=== PATIENT | female | born 2000 | race Caucasian/White ===

== ENCOUNTER 2018-04-01 05:50 | Emergency (ER) | payer SELFPAY ==
--- NOTE | 2018-04-01 06:48 | EDM.PDOC ---
ED HPI GENERAL MEDICAL PROBLEM - General Chief Complaint: CAR CONDITIONER Problem Stated Complaint: FEMALE PROBLEMS Time Seen by Provider: 04/01/18 05:52 Source of Information: Reports: Patient - History of Present Illness INITIAL COMMENTS - FREE TEXT/NARRATIVE: HISTORY AND PHYSICAL: History of present illness: 17-year-old G2 A1 25 week 5 day female presenting to emergency department with chief complaint of left vulvar pain and swelling. Patient states that she is from [place] and her CAR CONDITIONER had noticed a small area of swelling on her left vulvar area. At that time it was small and movable and her CAR CONDITIONER did not know how long it been there so decided to wait before doing anything. She had been instructed if it becomes hard and swollen and painful she may need to have a procedure performed. 2-3 days ago the area became much more firm and painful. Is difficult to sit, stand, or walk. States that sexual intercourse does not hurt. She has no history of STDs and is in a monogamous relationship. She denies any vaginal discharge or spotting or bleeding. Normal baby movements. Denies any associated fever, chills, nausea, vomiting, abdominal pain, diarrhea, or other signs of systemic infection. Review of systems: As per history of present illness and below otherwise all systems reviewed and negative. Past medical history: As per history of present illness and as reviewed below otherwise noncontributory. Surgical history: As per history of present illness and as reviewed below otherwise noncontributory. Social history: No reported history of drug or alcohol abuse. Family history: As per history of present illness and as reviewed below otherwise noncontributory. Physical exam: HEENT: Atraumatic, normocephalic, pupils reactive, negative for conjunctival pallor or scleral icterus, mucous membranes moist, throat clear, neck supple, nontender, trachea midline. Lungs: Clear to auscultation, breath sounds equal bilaterally, chest nontender. Heart: S1S2, regular, negative for clicks, rubs, or JVD. Abdomen: Soft, nondistended, nontender. Negative for masses or hepatosplenomegaly. Negative for costovertebral tenderness. Pelvis: Stable nontender. Genitourinary: There is significant swelling to the left labia major extending to the introitus and above. Rectal: Deferred. Extremities: Atraumatic, negative for cords or calf pain. Neurovascular unremarkable. Neuro: Awake, alert, oriented. Cranial nerves II through XII unremarkable. Cerebellum unremarkable. Motor and sensory unremarkable throughout. Exam nonfocal. Diagnostics: [] Therapeutics: 5 mL's lidocaine, Wrd catheter Impression: Bartholin's abscess Plan: Patient had significant swelling extending from the introitus to the labia major. There is mild erythema but extremely tender to palpation. Most consistent with a Bartholin's duct abscess. Using 5% lidocaine area was anesthetized with good analgesia. Under normal sterile technique a 11 blade was used to make a small puncture in the left Bartholin's gland area. A copious amount of purulent material was released approximately 10 mL's. A small Word catheter was then placed and bulb was inflated with approximately 2 mL of normal saline. Patient tolerated procedure well and there were no complications. Patient was scheduled to follow[facility] with [facility]. She was instructed to return months department if she had any new or worsening symptoms. vaginal pain Pain Score (Numeric/FACES): 10 - Related Data Allergies Allergy/AdvReac Type Severity Reaction Status Date / Time No Known Allergies Allergy Verified 04/01/18 06:34 Home Meds: Home Meds PNV95/Ferrous Fumarate/FA [ Tablet] 1 each PO DAILY 04/01/18 [History] Past Medical History - Past Health History Medical/Surgical History: Denies Medical/Surgical History CAR CONDITIONER History: Reports: Spontaneous Psychiatric History: Reports: Anxiety, Depression, Suicide Attempt Other Psychiatric History: pt states she was on anti-anxiety medication but stopped when she got Social & Family History - Family History Family Medical History: Noncontributory - Tobacco Use Smoking Status *Q: Never Smoker Second Hand Smoke Exposure: Yes - Caffeine Use Caffeine Use: Reports: Coffee, Soda - Recreational Drug Use Recreational Drug Use: No ED ROS GENERAL - Review of Systems Review Of Systems: ROS reveals no pertinent complaints other than HPI. ED EXAM, GENERAL - Physical Exam Exam: See Below Course - Vital Signs Last Recorded V/S: Last Vital Signs Temp 97.1 F 04/01/18 06:27 Pulse 118 H 04/01/18 06:27 Resp 18 04/01/18 06:27 BP 151/89 H 04/01/18 06:27 Pulse Ox 99 04/01/18 06:27 - Orders/Labs/Meds Meds: Medications Discontinued Medications Generic Name Dose Route Start Last Admin Trade Name Danielle PRN Reason Stop Dose Admin Lidocaine HCl Confirm 04/01/18 07:00 Xylocaine-Mpf 1% Administered 04/01/18 07:01 Dose 10 mls @ as directed .ROUTE .STK-MED ONE Lidocaine HCl 10 ml 04/01/18 06:52 Xylocaine 1% INJECT 04/01/18 06:53 ONETIME ONE Departure - Departure Time of Disposition: 07:47 Disposition: Home, Self-Care 01 Condition: Good Clinical Impression: Bartholin's gland abscess - Discharge Information Referrals: PCP,None [Primary Care Provider] - Forms: ED Department Discharge Additional Instructions: My general discharge The following information is given to patients seen in the emergency department who are being discharged to home. This information is to outline your options for follow-up care. We provide all patients seen in our emergency department with a follow-up referral. The need for follow-up, as well as the timing and circumstances, are variable depending upon the specifics of your emergency department visit. If you don't have a primary care physician on staff, we will provide you with a referral. We always advise you to contact your personal physician following an emergency department visit to inform them of the circumstance of the visit and for follow-up with them and/or the need for any referrals to a consulting specialist. The emergency department will also refer you to a specialist when appropriate. This referral assures that you have the opportunity for follow-up care with a specialist. All of these measure are taken in an effort to provide you with optimal care, which includes your follow-up. Under all circumstances we always encourage you to contact your private physician who remains a resource for coordinating your care. When calling for follow-up care, please make the office aware that this follow-up is from your recent emergency room visit. If for any reason you are refused follow-up, please contact the [facility] Emergency Department at and asked to speak to the emergency department charge nurse. [facility] [address] [place] [phone] Please follow-up with the CAR CONDITIONER sent number above as soon as possible. Be sure to tell them that he receive an emergency department and a Word catheter was placed for a Bartholin gland abscess. Use ice at site improve pain and inflammation. Return to emergency department if any new or worsening symptoms.
[2018-04-01] MEDS ORDERED: Lidocaine 1% 10 ML MDV INJECT ONE (06:52)
[2018-04-01] MEDS ORDERED: Lidocaine 1% 20 ML MDV INJECT ONE (06:56)
== END 2018-04-01 08:40 | disposition home or self-care (01) ==
LOC: MW.ED 05:50
DX: O99.89 Other specified diseases and conditions complicating pregnancy, childbirth and the puerperium (principal); N75.1 Abscess of Bartholin's gland; Z3A.25 25 weeks gestation of pregnancy
CPT/HCPCS: 99283